=== PATIENT | male | born 1945 | race Caucasian/White ===

== ENCOUNTER 2018-11-20 10:01 | Outpatient (CLI) | payer MEDICARE ==
[2018-11-20] MEDS ORDERED: ISOVUE-370 76%-LOCM 1 ML ONE (13:01)
--- NOTE | 2018-11-28 11:51 | CT ---
CTA HEART WITH AND WITHOUT CONTRAST: Date: 11/20/18 Multiple axial tomograms obtained to the heart without IV contrast to assess calcium scoring. CTA heart was performed with dynamic IV enhancement for coronary artery CT evaluation. Multiplanar re construction with images transferred to 3D workstation performed. INDICATION: Hypercholesterolemia. Hypertension. Screening. FINDINGS: CT CALCIUM SCORE: Left Main: 82 LAD: 535 Circumflex: 394 Right Coronary: 990 Total Score: 2,001 CTA CORONARY ARTERIES WITH IV CONTRAST: Functional CT: Ejection fraction: 67% End Diastolic: 156 mL End Systolic: 52 mL Stroke Volume: 104 mL CTA CORONARY ARTERIES: Left Main: Left main origin normal. Left main length approximately 1.0 cm. There is calcified plaque in the left main; however, no significant left main stenosis. LAD: There is calcified plaque in the proximal LAD at its origin. There is evidence of hemodynamical ly significant stenosis at the origin of the LAD, which appears greater than 50% diameter by NASCET c riteria. There is moderate calcified plaque throughout the proximal and mid LAD. Accurate diameter stenosis is limited due to the dense calcified plaque in the proximal LAD. There appears to be mild to moderate stenosis throughout the proximal and mid LAD. There appears to be a Type C LAD. Circumflex: Calcified plaque is seen throughout the proximal and mid circumflex. The degree of dense calcified plaque inhibits accurate diameter stenosis calculation. There appears to be mild to modera te diameter stenosis throughout the proximal to mid circumflex. Right Coronary: Patient's right coronary is dominant. There is calcified plaque in the mid right cor onary. Mild stenosis in the mid right coronary is seen, which does not appear to exceed 50% diameter. No significant stenosis seen in the distal right coronary or posterior descending coronary. No significant stenosis seen in the posterolateral left ventricular coronary. Ascending aorta diameter at sinus of Valsalva: 3.8 cm. Mid ascending aorta: 3.6 cm. Aortic arch: 2.5 cm. Descending thoracic aorta: 2.5 cm. Mild calcified plaque in thoracic aorta. No dissection. Pulmonary arteries are well opacified and unremarkable. Visualized lung fox appear clear. Mediastinum unremarkable with no evidence of adenopathy. Visualized osseous structures unremarkable. IMPRESSION: 1. Coronary artery calcium score of 2,001 indicates significant coronary artery plaque with signific ant increased risk of significant coronary artery stenosis. 2. There is evidence of significant stenosis at the origin of the LAD. Densely calcified plaque degr ades accurate diameter calculation. 3. Calcified plaque throughout the proximal and mid LAD with areas of mild to moderate stenosis thro ughout this artery. 4. Prominent calcified plaque throughout the proximal and mid circumflex with areas of mild to moder ate stenosis identified. 5. Calcified plaque in the mid right coronary with areas of mild to moderate stenosis. POS: BRETT
== END 2018-11-20 10:02 | disposition home or self-care (01) ==
LOC: BICCT 10:01
PROVIDERS: ATTEND Internal Medicine
DX: Z13.6 Encounter for screening for cardiovascular disorders (principal); I51.9 Heart disease, unspecified; I25.10 Atherosclerotic heart disease of native coronary artery without angina pectoris
CPT/HCPCS: 75574; 82565; Q9966

== ENCOUNTER 2022-09-24 12:27 | Outpatient (CLI) | payer MEDICARE ==
[2022-09-24 13:10] LABS: Anion Gap 17 mmol/L (10-20); BUN (Urea Nitrogen) 29 mg/dL (8.4-25.7); Calc. Creatinine Clearance 0 mL/min (70-130); Carbon Dioxide 21 mmol/L (23-31); Chloride 108 mmol/L (98-107); Estimated GFR 51; Glucose 113 mg/dL (83-110); Potassium 5.1 mmol/L (3.5-5.1); Sodium 141 mmol/L (136-145)
[2022-09-24 13:23] LABS: #Eosinphils 0.2 10x3/uL (0.0-0.5); #Monocytes 0.5 10x3/uL (0.0-1.1); #Neutrophils 4.6 10x3/uL (1.5-8.4); %Basophils 0.6 % (0.0-2.0); %Eosinophils 3.2 % (0.0-6.0); %Neutrophils 64.8 % (40.0-75.0); Hemoglobin 13.8 g/dL (13.5-17.5); Mean Corpuscular HGB CONC 34.2 g/dL (32.0-36.0); Mean Corpuscular Hemoglobin 30.9 pg (27.0-33.0); Mean Corpuscular Volume 90.6 fl (81.2-95.1); Mean Platelet Volume 8.9 fl (7.4-10.4); Platelet Count 217 10x3/uL (150-450); RBC Distribution Width 12.2 % (11.5-14.5); Red Blood Cell (RBC) Count 4.46 10x6/uL (4.32-5.72); White Blood Cell (WBC) Count 7.1 10x3/uL (3.5-10.5)
== END 2022-09-24 12:28 | disposition home or self-care (01) ==
LOC: LABBT 12:27
PROVIDERS: ATTEND Specialist
DX: Z01.818 Encounter for other preprocedural examination (principal); K42.9 Umbilical hernia without obstruction or gangrene
CPT/HCPCS: 71046; 80048; 85025; 93005; 93010

== ENCOUNTER 2022-09-28 06:08 | Day surgery (SDC) | payer MEDICARE ==
[2022-09-24 12:52] VITALS: BMI 26.5
[2022-09-28] MEDS ORDERED: CEFAZOLIN 2 GM VIAL ONE (06:25)
[2022-09-28] MEDS ORDERED: Acetaminophen 500 MG TAB ONE (06:25)
[2022-09-28] MEDS ORDERED: Sodium Chloride 0.9% 100 ML ONE (06:25)
[2022-09-28] MEDS ORDERED: Ketorolac Tromethamine 30 MG/ML VIAL ONE (06:25)
[2022-09-28] MEDS ORDERED: PHENYLEPHRINE-NS 100 MCG/ML 10 ML SYRINGE ONE (06:37)
[2022-09-28] MEDS ORDERED: Promethazine HCl 25 MG/ML VIAL ONE (06:37)
[2022-09-28] MEDS ORDERED: fentaNYL PF 100 MCG/2 ML SYRINGE ONE (06:38)
[2022-09-28] MEDS ORDERED: Bupivacaine 0.25% HCL 30 ML VIAL ONE (07:00)
[2022-09-28] MEDS ORDERED: EPINEPHrine 1 MG/ML AMP ONE (07:00)
[2022-09-28] MEDS ORDERED: ePHEDrine Sulfate 50 MG/10 ML VIAL ONE (07:39)
[2022-09-28] MEDS ORDERED: Lidocaine 1% PF 5 ML VIAL ONE (07:39)
[2022-09-28] MEDS ORDERED: PROPOFOL 200 MG/20 ML VIAL ONE (07:39)
[2022-09-28] MEDS ORDERED: Ondansetron PF 4 MG/2 ML Vial ONE (07:39)
== END 2022-09-28 10:30 | disposition home or self-care (01) ==
LOC: SDC 06:08
PROVIDERS: ATTEND Specialist
PROC: 0WUF0JZ Supplement Abdominal Wall with Synthetic Substitute, Open Approach (ICD-10-PCS; principal; 2022-09-28)
DX: K42.9 Umbilical hernia without obstruction or gangrene (principal); Z88.8 Allergy status to other drugs, medicaments and biological substances
CPT/HCPCS: J0171; J1885; J2405; J2550; J2704; J3490; S0020

== ENCOUNTER 2022-12-29 07:54 | Outpatient (CLI) | payer MEDICARE | END 2022-12-29 07:55 | disposition home or self-care (01) | LOC: CT 07:54 | PROVIDERS: ATTEND Family Medicine | DX: R31.9 Hematuria, unspecified (principal); N20.0 Calculus of kidney; N28.89 Other specified disorders of kidney and ureter | CPT/HCPCS: 74177 ==